=== PATIENT | male | born 1985 | race Caucasian/White ===

== ENCOUNTER 2016-09-08 16:45 | Emergency (ER) | payer SELFPAY ==
[~2016-09-08] VITALS: Ht 177.8 cm; Wt 62.6 kg
[~2016-09-08 16:45] MED LIST: PENI500T PO; TRAM50 PO
[2016-09-08 17:21] VITALS: BP 129/85; PULSE 85; RESP 18; TEMP 98.1; O2SAT 97
--- NOTE | 2016-09-08 17:44 | PD ---
HPI Chief Complaint: Respiratory Symptoms Time Seen by Provider: 17:32 Travel History International Travel<30 days: No Contact w/Intl Traveler<30days: No Traveled to known affect area: No History of Present Illness HPI 31yo M with no PMH presents to the ED with c/o productive cough, nasal congestion, throat pain, pain in the ribs with coughing and sob for 5 days. States he was over at his daughter's grandparents place and they were all sick. However, they are better now and he is still coughing. Took mucinex and robitussin with little relieve. Pt is a active cig smoker. Denies any fever, chest pain, n/v, abdominal pain, focal weakness or numbness. PFSH Past Medical History Arthritis: No Asthma: No Blood Disorders: No Bipolar Disorder: Yes Anxiety: Yes Depression: Yes Heart Rhythm Problems: No Cancer: No Cardiovascular Problems: No High Cholesterol: No Chest Pain: No Congestive Heart Failure: No COPD: No Cerebrovascular Accident: No Diabetes: No Diminished Hearing: No Endocrine: No GERD: No Genitourinary: No Headaches: No Hepatitis: No Hiatal Hernia: No Hypertension: No Immune Disorder: No Kidney Stones: No Musculoskeletal: No Neurologic: Yes (???) Psychiatric: Yes Reproductive: No Respiratory: No Immunizations Current: Yes Migraines: No Myocardial Infarction: No Renal Failure: No 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") Sleep Apnea: No Thyroid Disease: No Ulcer: No Tetanus Vaccination: Unknown Influenza Vaccination: No Past Surgical History Surgical History: No Previous Surgery Abdominal Surgery: No AICD: No Appendectomy: No Arteriovenous Shunt: No Cardiac Surgery: No Cholecystectomy: No Ear Surgery: No Endocrine Surgery: No Eye Surgery: No Genitourinary Surgery: No Gynecologic Surgery: No Insulin Pump: No Joint Replacement: No Oral Surgery: No Pacemaker: No Thoracic Surgery: No Social History Alcohol Use: Yes (OCCASIONAL) Tobacco Use: Yes (1 PPD) Substance Use: Yes Allergies-Medications (Allergen,Severity, Reaction): Coded Allergies: No Known Allergies (Verified , 09/08/16) Reported Meds & Prescriptions Reported Meds & Active Scripts Active Review of Systems Except as stated in HPI: all other systems reviewed are Neg Physical Exam Narrative GENERAL: 31yo M in mild distress. SKIN: Focused skin assessment warm/dry. HEAD: Atraumatic. Normocephalic. EYES: Pupils equal and round. No scleral icterus. No injection or drainage. ENT: Throat: Erythematous. No exudate. Uvula midline. Nose: +Bilateral nasal turbinate swelling. NECK: Trachea midline. No JVD. CARDIOVASCULAR: Regular rate and rhythm. No murmur appreciated. RESPIRATORY: Inspiratory wheezing bilaterally. GASTROINTESTINAL: Abdomen soft, non-tender, nondistended. MUSCULOSKELETAL: No obvious deformities. No clubbing. No cyanosis. No edema. NEUROLOGICAL: Awake and alert. No obvious cranial nerve deficits. Motor grossly within normal limits. Normal speech. PSYCHIATRIC: Appropriate mood and affect; insight and judgment normal. Data Data Last Documented VS Vital Signs Date Time Temp Pulse Resp B/P Pulse Ox O2 Delivery O2 Flow Rate FiO2 09/08/16 17:31 98 22 99 Room Air 09/08/16 17:21 98.1 129/85 Orders Chest, Single Ap (09/08/16 17:39) Albuterol-Ipratropium Neb (Duoneb Neb) (09/08/16 17:45) Prednisone (Deltasone) (09/08/16 17:45) Influenzae A/B Antigen (09/08/16 17:40) MDM Medical Decision Making Medical Screen Exam Complete: Yes Emergency Medical Condition: Yes Differential Diagnosis URI vs. reactive airway disease vs. pneumonia Narrative Course 31yo M with URI symptoms. Pt did have inspiratory wheezing and is a smoker so gave duonebs x3 and prednisone 60mg PO. Pt reevaluated at bedside and states sob has improved. Still have cough. Pt is saturating at 99% on RA. CXR showed no acute disease. Influenza negative. Return precautions given. Diagnosis Primary Impression: URI (upper respiratory infection) Qualified Code: J06.9 - Upper respiratory tract infection, unspecified type Patient Instructions: General Instructions Departure Forms: Tests/Procedures Additional Instructions: Please follow up with your PMD in 3-7 days. Return to the ED if symptoms worsen. Med/Other Pt SpecificInfo: Prescription(s) given Scripts Dextromethorphan Polistirex Liq (Robitussin 12 Hour Cough Liq)30 Mg/5 Ml Sus5 Ml PO Q12H PRN (COUGH) 5 Days Ref 0 Prov:Danii Umaña DO 09/08/16 Ibuprofen 600 Mg [id number] Mg PO Q8HR PRN (PAIN) #20 TAB Ref 0 Prov:Danii Umaña DO 09/08/16 Albuterol 18 GM Inh (Ventolin Hfa 18 GM Inh)90 Mcg/Act Aer2 Puff INH Q4H PRN ( SHORTNESS OF BREATH) #1 INHALER Ref 0 Prov:Danii Umaña DO 09/08/16 Prednisone (Deltasone)20 Mg Tab20 Mg PO BID 5 Days Ref 0 Prov:Danii Umaña DO 09/08/16 Disposition: 01 DISCHARGE HOME Condition: Stable Danii Umaña DO Sep 08, 2016 17:44
[2016-09-08] MEDS ORDERED: predniSONE 20 MG TAB PO ONE (17:45)
[2016-09-08] MEDS: RESP: ALBUTEROL 2.5 MG/IPRATROPIUM 0.5 MG NEB (SCH) INH ×2 (17:52→17:55)
--- NOTE | 2016-09-08 18:38 | RADHPO ---
EXAM DATE/TIME: 09/08/2016 18:31 [facility] COMPARISON: No previous studies available for comparison. INDICATIONS : Shortness of breath for five days. MEDICAL HISTORY : Smoker. SURGICAL HISTORY : None. ENCOUNTER: Initial ACUITY: 4 - 6 days PAIN SCORE: 0/10 LOCATION: Bilateral chest FINDINGS: A single view of the chest demonstrates the lungs to be symmetrically aerated without evidence of mas s, infiltrate or effusion. The cardiomediastinal contours are unremarkable. Osseous structures are intact. CONCLUSION: No acute disease. Chilango West MD on September 08, 2016 at 18:36 Board Certified Radiologist. This report was verified electronically.
[2016-09-08] MEDS ORDERED: DEXT1SUS PO (19:23)
[2016-09-08] MEDS ORDERED: VENTAER INH (19:23)
[2016-09-08] MEDS ORDERED: PRED-503 PO (19:23)
[2016-09-08] MEDS ORDERED: IBUP-232 PO (19:23)
== END 2016-09-08 19:59 | disposition home or self-care (01) ==
LOC: PHED 16:45
DX: J06.9 Acute upper respiratory infection, unspecified (principal); F17.210 Nicotine dependence, cigarettes, uncomplicated
CPT/HCPCS: 71010; 87804; 94640; 94664; 99283; J7512

== ENCOUNTER 2016-09-21 09:03 | Emergency (ER) | payer SELFPAY ==
[~2016-09-21] VITALS: Ht 177.8 cm; Wt 63.4 kg
[~2016-09-21 09:03] MED LIST changes: +DEXT1SUS PO; +IBUP-232 PO; -PENI500T PO; +PRED-503 PO; -TRAM50 PO; +VENTAER INH
[2016-09-21 09:13] VITALS: BP 120/88; PULSE 92; RESP 16; TEMP 97.8; O2SAT 97
[2016-09-21 09:30] VITALS: O2SAT 97
[2016-09-21] MEDS ORDERED: predniSONE 50 MG TAB PO ONE (09:30)
[2016-09-21] MEDS ORDERED: RESP: ALBUTEROL 2.5 MG/IPRATROPIUM 0.5 MG NEB (SCH) INH ONE (09:30)
--- NOTE | 2016-09-21 09:47 | RADHPO ---
EXAM DATE/TIME: 09/21/2016 09:30 [facility] COMPARISON: No previous studies available for comparison. INDICATIONS : Shortness of breath and cough. Flu like symptoms for 3 weeks. MEDICAL HISTORY : None. SURGICAL HISTORY : None. ENCOUNTER: [facility] ACUITY: 3 weeks PAIN SCORE: 0/10 LOCATION: Bilateral chest FINDINGS: PA and lateral views of the chest demonstrate the lungs to be symmetrically aerated without evidence of mass, infiltrate or effusion. The cardiomediastinal contours are unremarkable. Osseous structure s are intact. CONCLUSION: No acute disease. Heath Chao MD on September 21, 2016 at 9:44 Board Certified Radiologist. This report was verified electronically.
--- NOTE | 2016-09-21 09:47 | PD ---
HPI Chief Complaint: Cold / Flu Symptoms Time Seen by Provider: 09:17 Travel History International Travel<30 days: No Contact w/Intl Traveler<30days: No Traveled to known affect area: No History of Present Illness HPI 31-year-old male notes 3 week history of cough and congestion. He was here about a week and a half ago and completed his prednisone course and other medications. He states that he quit smoking but he persists with having his symptoms. He feels worse when he moves around. He denies other modifying factors. Quality is wheezing. Severity is progressive. He denies other concurrent complaints. PFSH Past Medical History Arthritis: No Asthma: No Blood Disorders: No Bipolar Disorder: Yes Anxiety: Yes Depression: Yes Heart Rhythm Problems: No Cancer: No Cardiovascular Problems: No High Cholesterol: No Chest Pain: No Congestive Heart Failure: No COPD: No Cerebrovascular Accident: No Diabetes: No Diminished Hearing: No Endocrine: No Gastrointestinal Disorders: No GERD: No Genitourinary: No Headaches: No Hepatitis: No Hiatal Hernia: No Hypertension: No Immune Disorder: No Implanted Vascular Access Dvce: No Kidney Stones: No Musculoskeletal: No Neurologic: Yes (???) Psychiatric: Yes Reproductive: No Respiratory: No Immunizations Current: Yes Migraines: No Myocardial Infarction: No Renal Failure: No 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") Sleep Apnea: No Thyroid Disease: No Ulcer: No Tetanus Vaccination: Unknown Past Surgical History Abdominal Surgery: No AICD: No Appendectomy: No Arteriovenous Shunt: No Cardiac Surgery: No Cholecystectomy: No Ear Surgery: No Endocrine Surgery: No Eye Surgery: No Genitourinary Surgery: No Gynecologic Surgery: No Insulin Pump: No Joint Replacement: No Neurologic Surgery: No Oral Surgery: No Pacemaker: No Thoracic Surgery: No Other Surgery: No Social History Alcohol Use: Yes (OCCASIONAL) Tobacco Use: Yes (1 PPD) Substance Use: Yes Allergies-Medications (Allergen,Severity, Reaction): Coded Allergies: No Known Allergies (Verified , 09/21/16) Reported Meds & Prescriptions Reported Meds & Active Scripts Active Ventolin Hfa 18 GM Inh (Albuterol Sulfate) 90 Mcg/Act Aer 2 Puff INH Q4-6H PRN Prednisone 50 Mg Tab 50 Mg PO DAILY Ventolin Hfa 18 GM Inh (Albuterol Sulfate) 90 Mcg/Act Aer 2 Puff INH Q4H PRN Review of Systems Except as stated in HPI: all other systems reviewed are Neg Physical Exam Narrative General: No apparent distress, well appearing ENT: mmm Neck: Neck is supple, no meningeal signs, trachea is midline Cardiovascular: Regular rate and rhythm Lungs: No increased respiratory effort noted, expiratory wheezing bilaterally Extremities: No edema Neuro: Awake, motor and sensation grossly intact, normal speech Head: Atraumatic Skin: Warm and dry Data Data Last Documented VS Vital Signs Date Time Temp Pulse Resp B/P Pulse Ox O2 Delivery O2 Flow Rate FiO2 09/21/16 10:37 78 16 97 09/21/16 09:30 Room Air 09/21/16 09:13 97.8 120/88 Orders Ecg Monitoring (09/21/16 09:19) Oximetry (09/21/16 09:19) Chest, Pa & Lat (09/21/16 09:19) Albuterol-Ipratropium Neb (Duoneb Neb) (09/21/16 09:30) Prednisone (Deltasone) (09/21/16 09:30) MDM Medical Decision Making Medical Screen Exam Complete: Yes Emergency Medical Condition: Yes Medical Record Reviewed: Yes (past history confirmed) Interpretation(s) cxr no acute Differential Diagnosis COPD, pneumonia, URI, allergies, pericarditis... Narrative Course Will check chest x-ray and dose with prednisone and DuoNeb and reevaluate cxr no acute, ctab, Patient denies any new complaints and states that they are feeling better. Patient happy with care, all questions answered. Patient knows that follow up is incumbent on them and to return to the emergency room immediately if new or worsening symptoms develop. Patient given strict return precautions, vitals reviewed and are normal, agrees to further workup as an outpatient. patient states needing albuterol inhaler Diagnosis Primary Impression: Reactive airway disease Qualified Code: J45.901 - Reactive airway disease, unspecified asthma severity , with acute exacerbation Additional Impression: URI (upper respiratory infection) Qualified Code: J06.9 - Upper respiratory tract infection, unspecified type Patient Instructions: General Instructions Additional Instructions: Return as needed, follow with primary care physician in the next 1-2 days, use albuterol as needed, continue to avoid cigarette smoking Med/Other Pt SpecificInfo: Prescription(s) given Scripts Albuterol 18 GM Inh (Ventolin Hfa 18 GM Inh)90 Mcg/Act Aer2 Puff INH Q4-6H PRN ( SHORTNESS OF BREATH) #1 INHALER Prov:Alisha Aponte MD 09/21/16 Prednisone 50 Mg Tab50 Mg PO DAILY #5 TAB Prov:Alisha Aponte MD 09/21/16 Disposition: 01 DISCHARGE HOME Condition: Stable Alisha Aponte MD September 21, 2016 09:47
[2016-09-21] MEDS ORDERED: PRED50 PO (10:31)
[2016-09-21] MEDS ORDERED: VENTAER INH (10:39)
== END 2016-09-21 10:43 | disposition home or self-care (01) ==
LOC: PHEFT 09:03
DX: J45.901 Unspecified asthma with (acute) exacerbation (principal); J06.9 Acute upper respiratory infection, unspecified; Z87.891 Personal history of nicotine dependence
CPT/HCPCS: 71020; 94664; 99283; J7512